=== PATIENT | female | born 1985 | race Asian ===

== ENCOUNTER 2024-07-18 21:49 | Emergency (ER) | payer OTHER ==
[~2024-07-18] VITALS: Ht 172.7 cm; Wt 74.0 kg
[2024-07-18 21:53] VITALS: BP 98/51; PULSE 94; RESP 18; TEMP 97.5; O2SAT 100
[2024-07-18] MEDS: SODIUM CHLORIDE 0.9% 1,000 ML IV ONE (22:41)
[2024-07-18 23:30] LABS: BASOPHILS % 0.3 % (0.0-2.0); EOSINOPHILS % 0.6 % (0.0-5.0); HEMATOCRIT. 41.8 % (36.0-48.0); HEMOGLOBIN. 14.4 g/dL (12.0-16.0); LYMPHOCYTES % 14.4 % (20.0-50.0); MEAN CORPUSCULAR HEMOGLOBIN 32.1 pg (28.0-32.0); MEAN CORPUSCULAR HGB CONC 34.5 g/dL (31.0-37.0); MEAN CORPUSCULAR VOLUME 92.9 fL (81.0-99.0); NEUTROPHILS % 80.7 % (40.0-76.0); PLATELET 262 x1000/uL (130-400); RED CELL DISTRIBUTION WIDTH 11.8 % (11.6-14.6); WHITE BLOOD COUNT 12.9 x1000/uL (4.5-11.0)
[2024-07-18 23:52] LABS: CHLORIDE 104 mEq/L (98-107); POTASSIUM 3.3 mEq/L (3.5-5.1); SODIUM 137 mEq/L (136-145)
[2024-07-18 23:53] LABS: CALCIUM 8.7 mg/dL (8.7-10.4); CARBON DIOXIDE 25 mEq/L (21-32)
[2024-07-18 23:58] LABS: CREATININE 0.8 mg/dL (0.6-1.0); GLUCOSE 128 mg/dL (70-105); UREA NITROGEN BLOOD 7 mg/dL (9-23)
[2024-07-19] LABS: TROPONIN I HIGH SENSITIVITY 12 ng/L (3.0-34)
[2024-07-19 00:16] LABS: HCG SCREEN NEGATIVE
[2024-07-19 00:26] LABS: ETHANOL BLOOD < 10 mg/dL (<10)
[2024-07-19] MEDS: POTASSIUM CHLORIDE 20MEQ/PACKET PO NR (00:27)
== END 2024-07-19 00:44 | disposition left against medical advice (07) ==
LOC: ER 21:49
DX: R42 Dizziness and giddiness (principal); Z88.0 Allergy status to penicillin
CPT/HCPCS: 80048; 80320; 84703; 85025; 84484; 36415; 70450; 93005; 96360; 99284; J7030; Z7610; G0480